=== PATIENT | male | born 1955 | race Caucasian/White ===

== ENCOUNTER → 2018-01-07 | Outpatient (CLI) | payer BC | LOC: COL.RAD 10:39 | DX: M19.041 Primary osteoarthritis, right hand (principal) ==

== ENCOUNTER → 2018-11-05 | Outpatient (CLI) | payer BC | LOC: COL.RAD 09:58 | DX: M16.11 Unilateral primary osteoarthritis, right hip (principal) ==

== ENCOUNTER → 2021-03-13 | Outpatient (CLI) | payer MEDICARE, BC ==
[~2021-03-13] MED LIST: ASPIRIN E.C. 8181 MG PO; CRESTOR20 MG PO; GLUCOPHAGE1000 MG PO; MAGNESIUM200 MG; NEURONTIN300 MG/CAP PO; NEURONTIN600 MG/TAB PO; OMEGA-3 1000 MG1 CAP PO; OSCAL 500 TAB500 MG PO; ZOLOFT 25MG25 MG PO; ZYLOPRIM 100MG100 MG PO
[2021-03-13 12:19] LABS: BASO % 0.2 % (0.0-2.0); EOS # 0.1 (0.0-0.7); EOS % 1.5 % (0-4.0); GRAN % 65.4 % (42.2-75.2); HEMATOCRIT 43.2 % (42.0-52.0); HEMOGLOBIN 15.9 g/dl (13.5-18.0); LYMPH # 2.4 (1.2-3.4); LYMPH % 26.3 % (20.0-51.0); MEAN CELL VOLUME 91 fl (80.0-100.0); MEAN CORPUSCULAR HEMOGLOBIN 34 pg (27.0-31.0); MEAN CORPUSCULAR HGB CONC 37 g/dl (33.0-37.0); MONO # 0.6 (0.1-0.6); MONO % 6.3 % (1.7-9.3); PLATELET COUNT 178 K/mm3 (130-400); RED BLOOD COUNT 4.75 M/mm3 (4.20-5.60); REDCELL DISTRIBUTION WIDTH-CV 11.9 % (11.5-14.5)
[2021-03-13 12:44] LABS: ALBUMIN 4.4 gm/dL (3.5-5.0); BILIRUBIN,TOTAL 0.7 mg/dL (0.0-1.0); CALCIUM 9.6 mg/dL (8.4-10.2); CREATININE, serum 0.67 (0.66-1.25); POTASSIUM 4.1 mmol/L (3.4-5.0); TOTAL PROTEIN 7.3 gm/dL (6.4-8.2)
== END ==
LOC: COL.LAB 11:32
PROVIDERS: Family Medicine
DX: R11.2 Nausea with vomiting, unspecified (principal); R14.0 Abdominal distension (gaseous); R63.4 Abnormal weight loss

== ENCOUNTER 2021-03-30 14:15 | Day surgery (SDC) | payer MEDICARE, BC ==
[~2021-03-30] VITALS: Ht 175.3 cm; Wt 78.1 kg
[2021-03-30] MEDS ORDERED: ZOLOFT 25MG25 MG PO (14:49)
[2021-03-30] MEDS ORDERED: NEURONTIN600 MG/TAB PO (14:50)
[2021-03-30] MEDS ORDERED: GLUCOPHAGE1000 MG PO (14:50)
[2021-03-30] MEDS ORDERED: NEURONTIN300 MG/CAP PO (14:50)
[2021-03-30] MEDS ORDERED: OMEGA-3 1000 MG1 CAP PO (14:51)
[2021-03-30] MEDS ORDERED: OSCAL 500 TAB500 MG PO (14:51)
[2021-03-30] MEDS ORDERED: CRESTOR20 MG PO (14:51)
[2021-03-30] MEDS ORDERED: ASPIRIN E.C. 8181 MG PO (14:51)
[2021-03-30] MEDS ORDERED: MAGNESIUM200 MG (14:52)
[2021-03-30] MEDS ORDERED: ZYLOPRIM 100MG100 MG PO (14:52)
[2021-03-30 15:00] VITALS: BP 109/81; PULSE 67; TEMP 98.2
[2021-03-30 16:15] VITALS: BP 106/80; PULSE 73; TEMP 97
--- NOTE | 2021-03-30 16:15 | NUR ---
PATIENT TRANSPORTED PER CART FROM GI SUITE TO BAY 3 ACCOMPANIED BY ENDO RN. PATIENT AMBULATED FROM CART TO CHAIR WITH SLOW STEADY GAIT. WITH 2 ASSIST. MONITORS APPLIED. IN ROOM. PATIENT TALKING WITH STAFF AND . VERBAL REPORT RECEIVED.
--- NOTE | 2021-03-30 16:22 | NUR ---
DR FUENTES IN ROOM AND SPEAKS WITH PATIENT AND . PATIENT GIVEN COFFEE AND MUFFIN X 2. DENIES DISCOMFORT AND NAUSEA/
[2021-03-30 16:30] VITALS: BP 131/97; PULSE 71
--- NOTE | 2021-03-30 16:33 | NUR ---
VSS ON ROOM AIR. PATIENT TOLERATES MUFFINS AND COFFEE WITHOUT PROBLEMS. IN ROOM TALKING WITH PATIENT.
[2021-03-30 16:45] VITALS: BP 132/86; PULSE 73
--- NOTE | 2021-03-30 16:45 | NUR ---
VSS ON ROOM AIR. PATIENT STATES HE IS READY TO GO HOME. IV DC'D WITH CATHETER TIP INTACT. PRESSURE AND BANDAGE APPLIED. DISCHARGE INSTRUCTIONS GIVEN VERBAL AND DISCHARGE PACKET PROVIDED. QUESTIONS ANSWERED AND PATIENT AND VOICED UNDERSTANDING. PATIENT CHANGES INTO STREET CLOTHES. 1700 PATIENT DISCHARGED PER WHEEL CHAIR ACCOMPANIED BY ENDO RN TO PRIVATE VECHILE DRIVEN BY .
[2021-03-30 17:41] VITALS: BP 106/80; PULSE 68
== END 2021-03-30 17:00 | disposition home or self-care (01) ==
LOC: SDCO 14:15
DX: K29.30 Chronic superficial gastritis without bleeding (principal); K57.30 Diverticulosis of large intestine without perforation or abscess without bleeding; R19.7 Diarrhea, unspecified; R63.4 Abnormal weight loss; K86.9 Disease of pancreas, unspecified; I25.2 Old myocardial infarction; G47.33 Obstructive sleep apnea (adult) (pediatric); M19.90 Unspecified osteoarthritis, unspecified site; E11.40 Type 2 diabetes mellitus with diabetic neuropathy, unspecified; M10.9 Gout, unspecified; F32.9 Major depressive disorder, single episode, unspecified; Z99.89 Dependence on other enabling machines and devices; Z85.828 Personal history of other malignant neoplasm of skin; Z20.822 Contact with and (suspected) exposure to COVID-19; Z79.82 Long term (current) use of aspirin; Z79.899 Other long term (current) drug therapy; Z79.84 Long term (current) use of oral hypoglycemic drugs; Z85.46 Personal history of malignant neoplasm of prostate; Z90.79 Acquired absence of other genital organ(s)
CPT/HCPCS: J2704; J7030

== ENCOUNTER 2021-08-20 15:50 | Emergency (ER) | payer MEDICARE, BC ==
[~2021-08-20] VITALS: Ht 175.3 cm; Wt 77.3 kg
[2021-08-20 18:00] VITALS: BP 116/88; PULSE 81; TEMP 98.4
== END 2021-08-20 18:00 | disposition home or self-care (01) ==
LOC: COL.ER 15:50
DX: S22.41XA Multiple fractures of ribs, right side, initial encounter for closed fracture (principal); I10 Essential (primary) hypertension; E78.5 Hyperlipidemia, unspecified; I25.10 Atherosclerotic heart disease of native coronary artery without angina pectoris; Z79.82 Long term (current) use of aspirin; Z79.899 Other long term (current) drug therapy; W01.198A Fall on same level from slipping, tripping and stumbling with subsequent striking against other object, initial encounter

== ENCOUNTER → 2021-09-26 | Outpatient (CLI) | payer MEDICARE, BC | LOC: MHCPAIN 12:33 | DX: M25.552 Pain in left hip (principal); M16.12 Unilateral primary osteoarthritis, left hip; G89.29 Other chronic pain | CPT/HCPCS: G0463; J0461; J1040; Q9967 ==

== ENCOUNTER → 2021-09-27 | Outpatient (CLI) | payer MEDICARE, BC | LOC: MHCPAIN 07:46 | DX: M16.12 Unilateral primary osteoarthritis, left hip (principal); M25.552 Pain in left hip ==